=== PATIENT | female | born 2000 | race Caucasian/White ===

== ENCOUNTER 2020-02-07 12:58 | Emergency (ER) | payer SELFPAY ==
--- NOTE | ~2020-02-07 | XR_ITS ---
XR chest 2V DATE: 02/07/2020 13:45 INDICATION: Shortness of breath TECHNIQUE: PA and lateral views COMPARISON: None FINDINGS: Normal heart size. No hilar or mediastinal enlargement. No pulmonary infiltrate or consolid ation, pleural effusion or pulmonary vascular congestion or pneumothorax. Levoscoliosis of the upper thoracic spine. IMPRESSION: No active cardiopulmonary disease Reviewed, dictated and finalized at location A.
[2020-02-07 13:03] VITALS: BP 119/65; PULSE 118; RESP 18; TEMP 36.8; O2SAT 100
[2020-02-07 13:09] VITALS: BP 119/65; PULSE 109; PULSE 113; RESP 12; O2SAT 100
[2020-02-07] MEDS: methylPREDNISolone SOD SUCC 125 MG VIAL 80 MG IV PUSH (13:26)
[2020-02-07] MEDS: SODIUM CHLORIDE 0.9% IV 1,000 ML 999 ML IV CONT (13:26)
--- NOTE | 2020-02-07 13:36 | ECG_ITS ---
Measurements Intervals [place] Rate: 116 P: 81 OR: 117 QRS: 100 QRSD: 97 T: 6 QT: 329 QTc: 458 Interpretive Statements SINUS TACHYCARDIA WITH SHORT OR INTERVAL RIGHT AXIS DEVIATION DELAYED PRECORDIAL R/S TRANSITION NONSPECIFIC ST & T-WAVE ABNORMALITY- INF/LAT LEADS BASELINE ARTIFACT- I, II, III, AVR, AVL, AVF, V1-V2, V5-V6 ABNORMAL ECG Electronically Signed On 02-07-2020 13:48:22 CDT by Eddie Giordano D.O.
[2020-02-07 13:43] LABS: Basophils Absolute Auto 0.1 K/mm3 (0.0-0.1); Basophils Percent Auto 0.7 % (0.2-1.2); Eosinophils Absolute Auto 0.1 K/mm3 (0-0.3); Eosinophils Percent Auto 1.9 % (0-4.4); Hematocrit 40.6 % (37.0-47.0); Hemoglobin 13.9 g/dL (12.0-15.0); Immature Granulocyte Absolute 0.02 K/mm3 (0.00-0.031); Immature Granulocyte Percent A 0.3 % (0-0.5); Lymphocytes Absolute Auto 3.23 K/mm3 (0.9-3.2); Lymphocytes Percent Auto 43.9 % (18.3-44.2); Mean Corpuscular HGB Conc 34.2 g/dl (32-36); Mean Corpuscular Hemoglobin 32.1 pg (26-34); Mean Corpuscular Volume 93.8 fl (80-100); Mean Platelet Volume 9.7 fl (7.4-10.4); Monocytes Absolute Auto 0.6 K/mm3 (0.1-0.6); Monocytes Percent Auto 7.7 % (2.6-8.5); Neutrophils Absolute Auto 3.4 K/mm3 (1.3-6.7); Neutrophils Percent Auto 45.5 % (45.5-73.1); Platelet Count Result 412 k/mm3 (150-375); Red Blood Count 4.33 M/mm3 (4.2-5.4); Red Cell Distribution Width 11.9 % (11.5-14.5); White Blood Count 7.4 K/mm3 (4.5-10.0)
[2020-02-07 13:54] LABS: Add Urine Microscopic? YES; Appearance Urine Clear (Clear); Bilirubin Urine Negative (Negative); Blood Urine 1+ (Negative); Color Urine Yellow (Yellow); Glucose Urine UA Negative (Negative); Ketones Urine Trace mg/dL (Negative); Leukocyte Esterase Ur Trace LEU/UL (Negative); Mucus Urine Rare /lpf; Nitrate Urine Negative (Negative); Protein Urine Negative (Negative); Specific Grav Ur 1.019 (1.001-1.035); Squamous Epithelial Cell Urine Many /hpf (Few); Urobilinogen Urine Negative mg/dL (<2.0)
[2020-02-07 14:05] LABS: Anion Gap 18.2 mmol/L (7-16); Blood Urea Nitrogen 16 mg/dL (7-17); Calcium 8.9 mg/dL (8.4-10.2); Carbon Dioxide 22 mmol/L (22-30); Chloride 103 mmol/L (98-107); Estimated CRCL calculation 87 ml/min; Estimated Glomerular Filt Rate > 60; Glucose 190 mg/dL (65-105); Potassium 3.2 mmol/L (3.4-5.0); Sodium 140 mmol/L (137-145)
--- NOTE | 2020-02-07 14:12 | ED.GENADULT ---
HPI - General Adult General Chief complaint: Asthma <Ned Gaming PA-C - Last Filed: 02/07/20 14:52> Stated complaint: SOB, Wheezing <Ned Gaming PA-C - Last Filed: 02/07/20 14:52> Time Seen by Provider: 02/07/20 13:05 <Ned Gaming PA-C - Last Filed: 02/07/20 14:52> Source: patient <Ned Gaming PA-C - Last Filed: 02/07/20 14:52> Mode of arrival: ambulatory <Ned Gaming PA-C - Last Filed: 02/07/20 14:52> Limitations: no limitations <Ned Gaming PA-C - Last Filed: 02/07/20 14:52> History of Present Illness HPI narrative: Patient is a 19-year-old female who presents to emergency department for evaluation of shortness of breath patient had gone for a walk began to feel short of breath upon returning home noting symptoms worsened with activity EMS presented noting that the patient was on all 4 knees and wheezing and short of breath patient was given updraft treatment and epinephrine and on arrival to emergency department is in the room in no distress patient is a history of using vaporized tobacco patient denies recent illness sick contacts. Patient on arrival is in the room in no distress otherwise with improving condition with normal lung signs and hemodynamically stable <Ned Gaming PA-C - Last Filed: 02/07/20 14:52> Related Data Allergies/adverse reactions: Allergies Allergy/AdvReac Type Severity Reaction Status Date / Time No Known Allergies Allergy Unknown Unverified 02/07/20 13:07 <Ned Gaming PA-C - Last Filed: 02/07/20 14:52> Review of Systems Review of Systems: All systems reviewed & are unremarkable except as noted in HPI and below <Ned Gaming PA-C - Last Filed: 02/07/20 14:52> PMF Past Medical History Medical History: Medical History (Updated 02/07/20 @ 14:14 by Ned Gaming PA-C) Asthma <Ned Gaming PA-C - Last Filed: 02/07/20 14:52> Social History Social History: Social History (Updated 02/07/20 @ 14:13 by Ned Gaming PA-C) Smoking status: Current every day smoker <ANGELLA Mason Last Filed: 02/07/20 14:52> Exam Narrative: Exam Narrative: GENERAL: Well-appearing, well-nourished, and in no acute distress. HEAD: Normocephalic, atraumatic. EYES: PERRLA and EOMI. ENT: Nares clear, no rhinorrhea or epistaxis. Mucous membranes moist. Oropharynx without tonsillar hypertrophy exudate or other lesions. NECK: Supple. No adenopathy or masses. CHEST: Clear to auscultation. No respiratory distress. No wheezes rales or rhonchi HEART: Regular rate and rhythm. No murmur heard. Normal peripheral pulses. ABDOMEN: Soft, nontender, nondistended EXTREMITIES: Normal range of motion. No edema. SKIN: Warm, dry, no rash. NEURO: No focal deficits. Alert and oriented x3. PSYCH: Normal mood and affect. <ANGELLA Mason Last Filed: 02/07/20 14:52> Course Course Emergency Course: Patient in the room in no distress aware of case findings treatment plan and diagnosis agreeing to follow-up as directed no high risk changes in the blood work or imaging was given medications to include steroids with improvement will be dose charged home with inhaler advised to discontinue smoking and given primary care follow-up <ANGELLA Mason Last Filed: 02/07/20 14:52> Vital Signs Vital signs: Vital Signs Temperature 98.3 F 02/07/20 13:03 Pulse Rate 118 H 02/07/20 13:03 Respiratory Rate 18 02/07/20 13:03 Blood Pressure 119/65 02/07/20 13:03 Pulse Oximetry 100 02/07/20 13:03 Temperature 98.3 F 02/07/20 13:03 Pulse Rate 88 02/07/20 14:59 Respiratory Rate 18 02/07/20 14:59 Blood Pressure 118/70 02/07/20 14:59 Pulse Oximetry 100 02/07/20 14:59 <ANGELLA Mason Last Filed: 02/07/20 14:52> Vital Signs Temperature 98.3 F 02/07/20 13:03 Pulse Rate 118 H 02/07/20 13:03 Respiratory Rate 18 02/07/20 13:03 Blo
[2020-02-07 14:59] VITALS: BP 118/70; PULSE 88; RESP 18; O2SAT 100
== END 2020-02-07 15:01 | disposition home or self-care (01) ==
PROVIDERS: Emergency Medicine Emergency Medical Services; Emergency Provider General Practice
DX: J45.901 Unspecified asthma with (acute) exacerbation (principal); F17.200 Nicotine dependence, unspecified, uncomplicated; R00.0 Tachycardia, unspecified; R94.31 Abnormal electrocardiogram [ECG] [EKG]
CPT/HCPCS: 36415; 71046; 80048; 81001; 81025; 85025; 93005; 96361; 96374; 99284; J2930; J7030

== ENCOUNTER 2020-03-27 15:18 | Emergency (ER) | payer OTHER, SELFPAY ==
--- NOTE | ~2020-03-27 | CT_ITS ---
EXAMINATION: CT thoracic spine wo con DATE: 03/27/2020 18:39 INDICATION: Upper back pain. Neck pain. Injury. TECHNIQUE: Computed tomography (CT) of the thoracic spine was performed without intravenous contrast. Automated exposure control and iterative reconstruction technique were employed. The dose-length pro duct was 162.19 mGy-cm. COMPARISON: Chest 2 views 02/07/2020 FINDINGS: There is 17 degrees levoscoliosis of upper thoracic spine. There is 11 degrees dextroscolio sis of lower thoracic spine. Vertebral body heights and intervertebral disc heights are normal. No fr acture. There is mild facet joint osteoarthritis at a few levels. No neural foraminal stenosis or rufino tral canal stenosis. IMPRESSION: 1. No fracture. 2. Scoliosis. Reviewed, dictated and finalized at location A.
--- NOTE | ~2020-03-27 | CT_ITS ---
EXAMINATION: CT facial & cervical spine wo DATE: 03/27/2020 18:39 INDICATION: Head injury. Neck pain. TECHNIQUE: Computed tomography (CT) of the maxillofacial region and cervical spine was performed with out intravenous contrast. Automated exposure control and iterative reconstruction technique were empl oyed. The dose-length product was 95.53 mGy-cm. COMPARISON: Cervical spine CT 11/22/2018 FINDINGS: MAXILLOFACIAL CT: There is left cheek soft tissue swelling. There is rightward deviation of the nasal septum. No fractu re. There is mild mucosal thickening in the paranasal sinuses. CERVICAL SPINE CT: There is kyphosis and dextrocurvature of cervical spine. Vertebral body heights and intervertebral di sc heights are normal. No fracture. The uncovertebral joints and facet joints are normal. No neural f oraminal stenosis or central canal stenosis. IMPRESSION: 1. No fracture. Reviewed, dictated and finalized at location A. IMPRESSION: 1. No fracture.
[2020-03-27 15:35] VITALS: BP 115/74; PULSE 119; RESP 26; TEMP 37.3; O2SAT 100
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
--- NOTE | 2020-03-27 15:46 | PC.NURSE ---
Call for help notified at this time. She stated I will send an advocate right out .
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
--- NOTE | 2020-03-27 16:44 | PC.NURSE ---
Jaimee padilla Call for Help at bedside to speak with patient.
--- NOTE | 2020-03-27 17:17 | PC.NURSE ---
GEOVANY Johnson, at bedside for medical clearance exam.
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
--- NOTE | 2020-03-27 17:35 | PC.NURSE ---
Pt calms somewhat and is agreeable to exam per GEOVANY Stuart, with this RN in attendance to assist with photos and care as needed. Pt continues to cry, and tolerates the external pelvic exam poorly. No obvious injury noted but pt is tender and jumps to labia minora being swabbed. When GEOVANY Stuart attempts to go forward with speculum exam pt jumps and pushes herself back on the stretcher, stating NO-DON'T-I CAN'T, I'm done, I can't . Exam halted immediately and pt given emotional support. Pt shaking violently and crying, offered something for pain and/or anxiety. Pt refuses. Explained need for images due to pt's reported injuries and gives consent for this. After GEOVANY Stuart leaves room, pt continues to cry, stating I'm sorry, I just can't do it again .
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
--- NOTE | 2020-03-27 18:29 | PC.NURSE ---
Pt to CT via stretcher.
[2020-03-27 19:08] LABS: Add Urine Microscopic? YES; Amorphous Sediment Urine Few; Appearance Urine Cloudy (Clear); Bacteria Urine Trace /hpf; Bilirubin Urine Negative (Negative); Blood Urine Negative (Negative); Color Urine Yellow (Yellow); Glucose Urine UA Negative (Negative); Ketones Urine Negative (Negative); Leukocyte Esterase Ur Negative LEU/UL (Negative); Mucus Urine Rare /lpf; Nitrate Urine Negative (Negative); Protein Urine Negative (Negative); Specific Grav Ur 1.018 (1.001-1.035); Squamous Epithelial Cell Urine Many /hpf (Few); Urobilinogen Urine Negative mg/dL (<2.0); WBC Urine 0-3 /hpf
--- NOTE | 2020-03-27 19:15 | PC.NURSE ---
Kit released to Officer Javier with the [employer].
[2020-03-27 19:40] VITALS: BP 126/72; PULSE 92; RESP 20; O2SAT 100
== END 2020-03-27 19:45 | disposition home or self-care (01) ==
PROVIDERS: Physician Assistant; Emergency Provider Emergency Medicine
DX: M54.2 Cervicalgia (principal); S00.93XA Contusion of unspecified part of head, initial encounter; T76.21XA Adult sexual abuse, suspected, initial encounter; M54.6 Pain in thoracic spine; Y04.2XXA Assault by strike against or bumped into by another person, initial encounter; J45.909 Unspecified asthma, uncomplicated
CPT/HCPCS: 70486; 72125; 72128; 81001; 81025; 99285

== ENCOUNTER 2020-04-08 10:53 | Emergency (ER) | payer SELFPAY ==
[2020-04-08 10:55] VITALS: BP 125/81; PULSE 107; RESP 16; TEMP 36.3; O2SAT 99
--- NOTE | 2020-04-08 11:38 | PC.NURSE ---
GEOVANY Ramesh at bedside for assessment. Pt not making eye contact while talking/explaining story/background, looking at the ground, rocking back and forth.
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
== END 2020-04-08 12:34 | disposition home or self-care (01) ==
PROVIDERS: Emergency Provider Emergency Medicine
DX: F41.9 Anxiety disorder, unspecified (principal); J45.909 Unspecified asthma, uncomplicated; F17.200 Nicotine dependence, unspecified, uncomplicated
CPT/HCPCS: 99281